=== PATIENT | male | born 2000 | race Caucasian/White ===

== ENCOUNTER 2023-04-10 18:33 | Emergency (ER) | payer MEDICAID ==
[~2023-04-10] VITALS: Ht 175.3 cm; Wt 114.0 kg
[2023-04-10] MEDS ORDERED: KETOROLAC 60MG/2ML VIAL IM ONE (21:15)
[2023-04-10] MEDS ORDERED: IBUP-2029 MT (22:18)
[2023-04-10 22:51] VITALS: BP 128/70
== END 2023-04-10 22:54 | disposition home or self-care (01) ==
LOC: ER 18:33
DX: R51.9 Headache, unspecified (principal); Z68.37 Body mass index [BMI] 37.0-37.9, adult
CPT/HCPCS: 96372; 99283; J1885